=== PATIENT | male | born 1950 | race Caucasian/White ===

== ENCOUNTER 2016-09-17 03:07 | Observation (INO) | payer MEDICARE, OTHER ==
[~2016-09-17] VITALS: Ht 185.4 cm; Wt 69.9 kg
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
[2016-09-17 03:55] LABS: BASO # 0.1 x10^3/uL (0.0-0.2); BASO % 1 % (0-3); EOS # 0.5 x10^3/uL (0.0-0.7); EOS % 7 % (0-3); HEMOGLOBIN 12.2 g/dL (13.0-17.5); LYMPH # 4.2 x10^3/uL (1.0-4.8); LYMPH % 56 % (24-48); MEAN CORPUSCULAR HEMOGLOBIN 29 pg (25-35); MEAN CORPUSCULAR HGB CONC 32 g/dL (31-37); MEAN CORPUSCULAR VOLUME 91 fL (79-100); MONO # 1.2 x10^3/uL (0.0-1.1); MONO % 16 % (0-9); NEUT # 1.5 x10^3uL (1.8-7.7); NEUT % 20 % (31-73); PLATELET COUNT 212 x10^3/uL (140-400); RED BLOOD COUNT 4.18 x10^6/uL (4.30-5.70); RED CELL DISTRIBUTION WIDTH 14.7 % (11.5-14.5); WHITE BLOOD COUNT 7.5 x10^3/uL (4.0-11.0)
[2016-09-17] MEDS ORDERED: LIDO:MAALOX 1:1 20 ML SINGLE DOSE PO ONE (04:00)
[2016-09-17] MEDS ORDERED: IOHEXOL 300 MG/ML 75 ML VIAL. IV ONE (04:00)
[2016-09-17] MEDS ORDERED: ONDANSETRON PF 4 MG/2 ML VIAL. IV ONE (04:00)
[2016-09-17] MEDS ORDERED: FAMOTIDINE 20 MG/2 ML VIAL IVP ONE (04:00)
[2016-09-17] MEDS ORDERED: CONTRAST GIVEN MC PRN (04:00)
[2016-09-17] MEDS ORDERED: MVI, ADULT NO.4 WITH VIT K 10 ML, FOLIC ACID SYRINGE for ER 1 MG, THIAMINE 100 MG in IV... IV SCH ×4 (04:00)
--- NOTE | 2016-09-17 04:05 | ACF ---
Admission Criteria Forms ABDOMINAL PAIN Clinical Indications for Admission to Inpatient Care (Place 'X' for any and all applicable criteria): Admission is indicated for ANY ONE of the following(1)(2)(3)(4)(5): [ ]I. Inpatient admission required rather than observation care (Also use Abdominal Pain: Observation Care, as appropriate) because of ANY ONE of the following: [ ]a) Severe pain requiring acute inpatient management [ ]b) Identification of etiology/finding that requires inpatient care (eg, aortic dissection, free air) [ ]c) Absent bowel sounds with complete ileus(6) [ ]d) Suspected toxic megacolon [ ]e) Severe electrolyte abnormalities requiring inpatient care [ ]f) High fever or infection requiring inpatient admission as indicated by ANY ONE of following(7)(8): [ ] i) Appropriate outpatient or observational care antimicrobial treatment unavailable, not effective, or not feasible [ ] ii) Documented bacteremia [ ] iii) Temperature > 104.9 degrees F (oral) [ ] iv) T >103.1 F (oral) or < 96.8 F(rectal) that does not respond to all emergency treatment measures [ ]g) Signs of intestinal obstruction [B] [ ]h) Hemodynamic instability [ ]i) IV fluid to replace significant ongoing losses (greater than 3 L/m2 per day) (12)(13) [ ]j) Percutaneous or open drainage (eg, abscess, biliary tract ) procedures [ ]k) Parenteral nutrition regimen that must be implemented on inpatient basis [ ]l) Other condition,treatment or monitoring requiring inpatient admission. [ ]II. Peritoneal signs present [ ]III. Surgery needed that cannot be performed on an ambulatory basis. [ ]IV. Evaluation requires patient to not eat or drink for extended period ( eg, more than 24 hours). [ ]V. Contraindications and/or Inappropriate clinical situations for Observational Care in patients with abdominal pain, when ANY ONE of the following is required: [ ]a) Thorough evaluation is required to prevent catastrophic events due to delays in diagnosing (e.g.Mesenteric ischemia) 1,3 [ ]b) Patient with severe pathology or with chronic symptoms unlikely to improve in the ED stay (3) [ ]. General contraindications and/or Inappropriate clinical situations for Observational Care in patients with abdominal pain, when ANY ONE of the following is required: [ ]a) Prediction of prolongation of LOS based on ANY ONE of the following may be considered as a contraindication for observational care 2, 3, 4, 5, 6, 7, 8, 9, 10, 11 [ ]i) Age > 65 yrs. [ ]ii) Patient arriving by ambulance [ ]iii) Patient with high acuity [ ]iv) Patient requiring vital sign monitoring [ ]v) Patient on IV medication [ ]b) Systolic blood pressures 180mmHg 3,12 [ ]c) Patient with altered mental status including delirium and other alteration of consciousness, (3) [ ]d) Patient whose discharge disposition will be to a half-way home or rehabilitation home should not be managed in Emergency Department Observation Unit. CMS rule requires 3 days hospital stay before such placement.3,13 [ ]e) Patient with failure to thrive due to broad array of etiologies 3,16,17 [ ]f) Inability to ambulate 3,14 Extended stay beyond goal length of stay may be needed for(2)(3): [ ]a) Persistent abdominal pain with suspected intra-abdominal process [ ]b) Diagnosed condition requiring continued stay (e.g., pancreatitis, complicated diverticulitis) [ ]c) Surgery (e.g., colectomy) The original [facility] content created by [employer] has been revised. The portions of the content which have been revised are identified through the use of italic text or in bold, and [email or web address] has neither reviewed nor approved the modified material.All other unmodified content is copyright [facility]. Please see references footnoted in the original [facility] edition 2015 JAMARCUS RAYA Sep 17, 2016 04:05 KWADWO MATTHEWS Sep 17, 2016 05:15
[2016-09-17 04:07] LABS: ALBUMIN 3.3 g/dL (3.4-5.0); ALBUMIN/GLOBULIN RATIO 0.8 (1.0-1.7); CALCIUM 8.3 mg/dL (8.5-10.1); CREATININE 1.7 mg/dL (0.7-1.3); GFR 40.7; POTASSIUM 3.9 mmol/L (3.5-5.1); TOTAL BILIRUBIN 0.3 mg/dL (0.2-1.0); TOTAL PROTEIN 7.3 g/dL (6.4-8.2)
[2016-09-17] MEDS ORDERED: IV NORMAL SALINE 1,000ML 1,000 ML ONE ×2 (04:09→05:01)
[2016-09-17] MEDS ORDERED: THIAMINE 200 MG/2 ML VIAL. IV ONE (04:10)
[2016-09-17] MEDS ORDERED: FOLIC ACID 5 MG/ML SYRINGE for ER IV ONE (04:10)
[2016-09-17] MEDS ORDERED: MVI, ADULT NO.4 WITH VIT K 10 ML VIAL IV ONE (04:10)
[2016-09-17] MEDS ORDERED: IV NORMAL SALINE 1,000ML 1,000 ML IV SCH (04:35)
--- NOTE | 2016-09-17 04:50 | RAD ---
CT scan of the abdomen and pelvis without contrast 09/17/2016 CLINICAL HISTORY: Abdominal pain, nausea and vomiting since earlier today. TECHNIQUE: Unenhanced, contiguous, 3 mm axial sections were obtained through the abdomen and pelvis. One or more of the following individualized dose reduction techniques were utilized for this study: 1. Automated exposure control. 2. Adjustment of the mA and/or kV according to patient size. 3. Use of iterative reconstruction technique. FINDINGS: Images through the lung bases demonstrate minimal dependent subsegmental atelectasis bilaterally. The liver, spleen, pancreas and adrenal glands are within normal limits. The patient is status post left nephrectomy. Low-attenuation lesions are seen involving the superior/midpole of the right kidney. These measure 7 mm and 1.3 cm in size. They are consistent most likely with cysts. Mild to moderate scattered atherosclerotic plaque formation is seen involving the abdominal aorta and its branches. The abdominal aorta tapers normally. The gallbladder is contracted. No free fluid or free air is seen within the abdomen. There is no evidence of bowel obstruction. Air and stool is seen throughout the colon. Images through the pelvis demonstrate the urinary bladder to be slightly contracted. The prostate gland is mildly enlarged likely related to BPH. Calcifications are seen within the pelvis consistent with phleboliths. No free fluid is seen. Very mild S-shaped curvature of the thoracolumbar spine is seen. Degenerative changes are seen involving the lower thoracic and throughout the lumbar spine and both hips. IMPRESSION: No acute abnormality is seen. Electronically signed by: Anish Riggins MD (09/17/2016 4:46 AM)
[2016-09-17] MEDS ORDERED: IV NORMAL SALINE 1,000ML 1,000 ML IV ONE (05:15)
--- NOTE | 2016-09-17 05:17 | ACF ---
Admission Criteria Forms MUSCULOSKELETAL DISEASE GRG Clinical Indications for Admission to Inpatient Care (Place 'X' for any and all applicable criteria): Hospital admission is needed for appropriate care of the patient because of 1 or more of the following: [ ]I. Fracture, dislocation, or other musculoskeletal injury requiring inpatient care(medical) as indicated by 1 or more of the following(4)(5)(6)(7) [ ]a) Vertebral fracture requiring observation for instability or neurologic compromise (8) [ ]b) Compartment syndrome (proven or cannot be ruled out during observation level of care) (9) [ ]c) Limb-threatening injury [ ]d) Major injury requiring inpatient stabilization such as traction initiation or external fixation before internal fixation or closure of complex or open fracture [ ]e) Major injury requiring inpatient treatment after emergency or observation level care (as appropriate) [ ]f) Severe pain requiring acute inpatient management [ ]g) Injury with suspicion of abuse or neglect (eg., child, dependent elderly) [ ]II. Newly diagnosed or suspected bone, joint, or orthopedic device infection (e.g., osteomyelitis, septic arthritis) needing 1 or more of the following(1)(2)(3) [ ]a) IV antibiotics that cannot be initiated in other than inpatient setting (e.g., patient too unstable or home infusion not available) [ ]b) Device removal or replacement [ ]c) Bone or soft tissue debridement [ ]d) Joint drainage (drain placement or repetitive aspirations) [ ]III. Severe rheumatologic disease (e.g., systemic lupus erythematosus, rheumatoid arthritis) with complications or comorbidities (Also use Optimal Recovery Care Criteria or General Recovery Criteria as appropriate on the basis of predominant condition), including 1 or more of the following( 10)(11)(12)(13) [ ]a) Severe infection (e.g., NUTRITION INSTRUCTOR infection, sepsis) (14) [ ]b) Respiratory complications, including 1 or more of the following : [ ]i) Pleural effusion with respiratory compromise [ ]ii) Pulmonary hypertension with congestive failure [ ]iii) Respiratory failure [ ]iv) Pulmonary hemorrhage (15) [ ]c) Hematologic disease, including 1 or more of the following: [ ]i) Coagulopathy with bleeding [ ]ii) Thrombosis with hypercoagulable state [ ]iii) Thrombotic thrombocytopenic purpura [ ]d) Cerebritis with seizures, psychosis, or other severe abnormalities [ ]e) Vertebral destruction with monitoring needed for cervical myelopathy& possible respiratory compromise [ ]f) Exacerbation that requires inpatient treatment (e.g., intravenous immunosuppression) (16) [ ]g) Acute renal failure [ ]h) Cerebritis with seizures, psychosis, Altered mental status, or other neurologic abnormalities [ ]i) Pericardial effusion with tamponade [ ]j) Vertebral destruction, with monitoring needed for cervical myelopathy and possible respiratory compromise [ ]IV. Severe vasculitis with complications or comorbidities (Also use Optimal Recovery Care Criteria General Recovery Criteria as appropriate on the basis of predominant condition), including 1 or more of the following(11)(12)(17)(18)(19)(20) [ ]a) Exacerbation that requires inpatient treatment (e.g., intravenous immunosuppression) (19)(21) [ ]b) Pulmonary hemorrhage (15) [ ]c) NUTRITION INSTRUCTOR vasculitis with seizures, psychosis, Altered mental status that is severe or persistent, or other severe abnormalities (22) [ ]d) Cerebral infarction [ ]e) Gastrointestinal ischemia [ ]f) Gangrene or threatened amputation [ ]g) Renal failure (16) [ ]h) Other significant complications of vasculitis ( eg., tissue or organ ischemia, organ dysfunction ) [ ]V. Severe myopathy as indicated by 1 or more of the following (28)(29) [ ]a) New onset of airway compromise or inability to swallow [ ]b) Respiratory deterioration with observation needed for impending respiratory failure [ ]c) Exacerbation that requires inpatient treatment (e.g., intravenous immunosuppression) [ ]. Severe crystal gout (arthropathy) indicated by 1 or more of the following (23)(24) [ ]a) Severe pain requiring acute inpatient management [ ]b) Exacerbation that requires inpatient treatment (e.g., intravenous treatment) [X]VII.Rhabdomyolysis and 1 or more of the following (25)(26)(27) [X]a) Acute renal failure [ ]b) Need for intravenous hydration after emergency or observation level care (as appropriate) [ ]c) Inability to maintain oral hydration [ ]d) Change in mental status [ ]e) Electrolyte abnormality that remains after emergency or observation level care (as appropriate) [ ]VIII Post amputation complication, as indicated by ANY ONE of the following [ ]a) Infection [ ]b) Dehiscence [ ]c) Myodesis failure [ ]IX. Severe pain requiring acute inpatient management due to musculoskeletal condition [ ]X. Musculoskeletal Disease and ALL of the following: [ ]a) Symptom or finding for which emergency and observation care have failed or are not considered appropriate (Use General Criteria: Observation Care as appropriate) [ ]b) Presence of ANY ONE of the following [ ]i) A General Admission Criteria [ ]ii) A Pediatric General Admission Criteria The original [facility] [employer] content created by [facility] [employer] has been revised. The portions of the content which have been revised are identified through the use of italic text or in bold, and [facility] has neither reviewed nor approved the modified material. All other unmodified content is copyright [facility]. Please see references footnoted in the original [facility] edition 2016 Admission Criteria Met?: Yes KWADWO MATTHEWS Sep 17, 2016 05:17
[2016-09-17] MEDS ORDERED: ONDANSETRON PF 4 MG/2 ML VIAL. IV PRN (05:45)
[2016-09-17] MEDS ORDERED: ACETAMINOPHEN 325 MG TABLET PO PRN (05:45)
[2016-09-17 06:04] VITALS: BP 121/87
[2016-09-17] MEDS: IV NORMAL SALINE 1,000ML 1,000 ML IV SCH ×2 (06:13→11:24)
[2016-09-17 06:18] LABS: AMPHETAMINE/METHAMPHETAMINE NEG (NEG); BARBITURATES NEG (NEG); BENZODIAZEPINES NEG (NEG); CANNABINOIDS POS (NEG); COCAINE POS (NEG); METHADONE NEG (NEG); OPIATES NEG (NEG); PHENCYCLIDINE NEG (NEG)
[2016-09-17 06:21] LABS: BILIRUBIN,URINE NEG (NEG); CLARITY,URINE CLEAR; COLOR,URINE YELLOW; GLUCOSE,URINE NEG (NEG)
[2016-09-17 06:22] LABS: BACTERIA,URINE 0 /HPF (0-FEW); HYALINE CASTS, URINE MOD /HPF; NITRITE,URINE NEG (NEG); RBC,URINE 0 /HPF (0-2); SQUAMOUS EPITHELIAL CELL,UR FEW /LPF; UROBILINOGEN,URINE 0.2 mg/dL (0.2 mg/dL)
--- NOTE | 2016-09-17 06:26 | EKG ---
[address] [address] Test Date: 2016-09-17 Test Time: 04:12:57 Pat Name: AMANDA RETANA Department: Room: Gender: M Floating Operator: ARIS : 1953-10-29 Requested By: OLIVIA MCGUIRE Order Number: [id number] Reading MD: Measurements Intervals [place] Rate: 68 P: 61 SD: 114 QRS: 11 QRSD: 118 T: 128 QT: 408 QTc: 439 Interpretive Statements SINUS RHYTHM R-S TRANSITION ZONE IN V LEADS DISPLACED TO THE RIGHT QRS(T) CONTOUR ABNORMALITY CONSIDER ANTEROLATERAL MYOCARDIAL DAMAGE CONSISTENT WITH INFERIOR INFARCT PROBABLY OLD RI6.01 Unconfirmed report No previous ECG available for comparison
[2016-09-17] MEDS ORDERED: ACET500T68 PO (07:08)
[2016-09-17] MEDS ORDERED: EMTR1TAB9 PO (07:08)
[2016-09-17] MEDS ORDERED: DIPH50CA PO (07:08)
[2016-09-17] MEDS ORDERED: IBUP800T19 PO (07:08)
[2016-09-17] MEDS ORDERED: HYDR12.58 PO (07:08)
[2016-09-17] MEDS ORDERED: DOCU100C28 PO (07:08)
[2016-09-17] MEDS ORDERED: AMLO10TA2 PO (07:08)
[2016-09-17] MEDS ORDERED: LEDI1TAB PO (07:11)
[2016-09-17] MEDS ORDERED: M-SA237L TP (07:11)
[2016-09-17] MEDS ORDERED: LORA10TA3 PO (07:11)
[2016-09-17] MEDS ORDERED: METH-37 PO (07:12)
[2016-09-17] MEDS ORDERED: MULT-208 PO (07:13)
[2016-09-17] MEDS ORDERED: SERT50TA PO (07:13)
[2016-09-17] MEDS: IPRATRPIUM/ALBUTEROL 0.5/2.5MG 3 ML NEBU. NEB SCH ×2 (09:34→15:29)
[2016-09-17 10:23] VITALS: BP 112/66
[2016-09-17] MEDS ORDERED: IBUPROFEN 800 MG TABLET. PO PRN (13:30)
[2016-09-17] MEDS ORDERED: METHOCARBAMOL 500 MG TABLET PO PRN (13:30)
[2016-09-17] MEDS ORDERED: NON FORMULARY ITEM (Ledipasvir/Sofosbuvir (Harvoni 90-400 mg Tablet) 1 TAB) PO PRN (13:30)
[2016-09-17] MEDS ORDERED: DOCUSATE SODIUM 100 MG CAPSULE PO PRN (13:30)
[2016-09-17] MEDS ORDERED: SERTRALINE 50 MG TABLET. PO SCH (14:00)
[2016-09-17] MEDS ORDERED: amLODIPine BESYLATE 10 MG TABLET PO SCH (14:00)
[2016-09-17 15:56] VITALS: BP 151/99
--- NOTE | 2016-09-17 15:59 | PDOC3 ---
Discharge Summary Visit Information Date of Admission: Sep 17, 2016 Date of Discharge: Sep 17, 2016 Admitting Diagnosis: Mild rhabdomyolysis,CKI, POLYSUBSTANCE ABUSE, HIV Hepati Admitting Diagnosis Comments Mild rhabdomyolysis Polysubstance abuse CKI COACIANE ABUSE ALCOHOLISM HEPATITIS C HIV Tobaccoism Final Diagnosis Dehydration and mild rhabdomyolysis resolving Hepatitis c HIV COCAINE ABUSE ALCOHOLISM TOBACCOISM Problems: Brief Hospital Course Allergies Allergies Coded Allergies Type Severity Reaction Last Updated Verified No Known Drug Allergies 09/17/16 No Vital Signs Vital Signs Date Time Temp Pulse Resp B/P (MAP) Pulse Ox O2 Delivery O2 Flow Rate FiO2 09/17/16 15:30 98 Room Air 09/17/16 14:21 81 09/17/16 10:23 14 112/66 (81) 09/17/16 06:04 97.3 Lab Results Laboratory Tests Test 09/17/16 03:20 09/17/16 05:49 09/17/16 10:20 White Blood Count 7.5 x10^3/uL (4.0-11.0) Red Blood Count 4.18 x10^6/uL (4.30-5.70) Hemoglobin 12.2 g/dL (13.0-17.5) Hematocrit 38.0 % (39.0-53.0) Mean Corpuscular Volume 91 fL (79-100) Mean Corpuscular Hemoglobin 29 pg (25-35) Mean Corpuscular Hemoglobin Concent 32 g/dL (31-37) Red Cell Distribution Width 14.7 % (11.5-14.5) Platelet Count 212 x10^3/uL (140-400) Neutrophils (%) (Auto) 20 % (31-73) Lymphocytes (%) (Auto) 56 % (24-48) Monocytes (%) (Auto) 16 % (0-9) Eosinophils (%) (Auto) 7 % (0-3) Basophils (%) (Auto) 1 % (0-3) Neutrophils # (Auto) 1.5 x10^3uL (1.8-7.7) Lymphocytes # (Auto) 4.2 x10^3/uL (1.0-4.8) Monocytes # (Auto) 1.2 x10^3/uL (0.0-1.1) Eosinophils # (Auto) 0.5 x10^3/uL (0.0-0.7) Basophils # (Auto) 0.1 x10^3/uL (0.0-0.2) Sodium Level 140 mmol/L (136-145) Potassium Level 3.9 mmol/L (3.5-5.1) Chloride Level 104 mmol/L (98-107) Carbon Dioxide Level 26 mmol/L (21-32) Anion Gap 10 (6-14) Blood Urea Nitrogen 17 mg/dL (8-26) Creatinine 1.7 mg/dL (0.7-1.3) Estimated GFR (Cockcroft-Gault) 40.7 BUN/Creatinine Ratio 10 (6-20) Glucose Level 174 mg/dL (70-99) Calcium Level 8.3 mg/dL (8.5-10.1) Total Bilirubin 0.3 mg/dL (0.2-1.0) Aspartate Amino Transf (AST/SGOT) 48 U/L (15-37) Alanine Aminotransferase (ALT/SGPT) 39 U/L (16-63) Alkaline Phosphatase 82 U/L (46-116) Creatine Kinase 821 U/L (39-308) 614 U/L (39-308) Troponin I Quantitative < 0.017 ng/mL (0-0.055) < 0.017 ng/mL (0-0.055) Total Protein 7.3 g/dL (6.4-8.2) Albumin 3.3 g/dL (3.4-5.0) Albumin/Globulin Ratio 0.8 (1.0-1.7) Lipase 141 U/L (73-393) Ethyl Alcohol Level 16 mg/dL (0-10) Urine Collection Type Unknown Urine Color Yellow Urine Clarity Clear Urine pH 6.0 Urine Specific [place] <=1.005 Urine Protein Neg (NEG-TRACE) Urine Glucose (UA) Neg mg/dL (NEG) Urine Ketones (Stick) Neg mg/dL (NEG) Urine Blood Neg (NEG) Urine Nitrite Neg (NEG) Urine Bilirubin Neg (NEG) Urine Urobilinogen Dipstick 0.2 mg/dL (0.2 mg/dL) Urine Leukocyte Esterase Neg (NEG) Urine RBC 0 /HPF (0-2) Urine WBC 1-4 /HPF (0-4) Urine Squamous Epithelial Cells Few /LPF Urine Bacteria 0 /HPF (0-FEW) Urine Hyaline Casts Mod /HPF Urine Mucus Slight /LPF Urine Opiates Screen Neg (NEG) Urine Methadone Screen Neg (NEG) Urine Barbiturates Neg (NEG) Urine Phencyclidine Screen Neg (NEG) Urine Amphetamine/Methamphetamine Neg (NEG) Urine Benzodiazepines Screen Neg (NEG) Urine Cocaine Screen Pos (NEG) Urine Cannabinoids Screen Pos (NEG) Urine Ethyl Alcohol Neg (NEG) Brief Hospital Course Mr. Cullen is a 65 old [sex] who presented with [ ] Discharge Information Condition at Discharge: Improved, Stable Disposition/Orders: D/C to Home, D/C to a [facility] Medications Current Medications Multi-Ingredient Mouthwash/Gargle (Gi Cocktail) 20 ml 1X ONCE PO ; Start at 04:00; Stop 09/17/16 at 04:01; Status DC Ondansetron HCl (Zofran) 4 mg 1X ONCE IV Last administered on 09/17/16 04:00; Start 09/17/16 at 04:00; Stop 09/17/16 at 04:01; Status DC Famotidine (Pepcid) 20 mg 1X ONCE IVP Last administered on 09/17/16 04:00; Start 09/17/16 at 04:00; Stop 09/17/16 at 04:01; Status DC Multivitamins/ Minerals 10 ml/ Folic Acid 1 mg/ Thiamine HCl 100 mg/Sodium Chloride 1,011.2 ml @ 1,000 mls/ hr Q1H IV Last administered on 09/17/16 04:00 ; Start 09/17/16 at 04:00; Stop 09/17/16 at 04:30; Status DC Iohexol (Omnipaque 300 Mg/ml) 75 ml 1X ONCE IV ; Start 09/17/16 at 04:00; Stop 09/17/16 at 04:01; Status DC Info (Do NOT chart on this entry -- for MONITORING) 1 each PRN DAILY PRN MC SEE COMMENTS; Start 09/17/16 at 04:00; Stop 09/19/16 at 03:59 Sodium Chloride 1,000 ml @ As Directed STK-MED ONCE .ROUTE ; Start 09/17/16 at 04:09; Stop 09/17/16 at 04:10; Status DC Thiamine HCl 200 mg STK-MED ONCE IV ; Start 09/17/16 at 04:10; Stop 09/17/16 at 04 :11; Status DC Multivitamins/ Minerals (Infuvite Adult) 10 ml STK-MED ONCE IV ; Start 09/17/16 at 04:10; Stop 09/17/16 at 04:11; Status DC Folic Acid 5 mg STK-MED ONCE IV ; Start 09/17/16 at 04:10; Stop 09/17/16 at 04:11 ; Status DC Sodium Chloride 1,000 ml @ 1,000 mls/hr Q1H IV ; Start 09/17/16 at 04:35; Stop 09/17/16 at 05:34; Status Cancel Sodium Chloride 1,000 ml @ 1,000 mls/hr Q1H ONCE IV Last administered on 05:12; Start 09/17/16 at 05:15; Stop 09/17/16 at 06:15; Status DC Sodium Chloride 1,000 ml @ As Directed STK-MED ONCE .ROUTE ; Start 09/17/16 at 05:01; Stop 09/17/16 at 05:10; Status DC Ondansetron HCl (Zofran) 4 mg PRN Q4HRS PRN IV NAUSEA/VOMITING; Start 09/17/16 at 05:45; Stop 09/18/16 at 05:44 Sodium Chloride 1,000 ml @ 200 mls/hr Q5H IV Last administered on 09/17/16 11: 24; Start 09/17/16 at 06:30; Stop 09/18/16 at 06:29 Acetaminophen (Tylenol) 650 mg PRN Q4HRS PRN PO FEVER; Start 09/17/16 at 05:45; Stop 09/18/16 at 05:44 Albuterol/ Ipratropium (Duoneb) 3 ml RTQID NEB Last administered on 09/17/16 15 :29; Start 09/17/16 at 08:00; Stop 09/18/16 at 07:59 Amlodipine Besylate (Norvasc) 10 mg DAILY PO ; Start 09/18/16 at 09:00; Stop 09/18 at 09:00; Status DC Docusate Sodium (Colace) 200 mg PRN DAILY PRN PO CONSTIPATION; Start 09/17/16 at 13:30 Ibuprofen (Motrin) 800 mg PRN TID PRN PO INFLAMMATION Last administered on 14:21; Start 09/17/16 at 13:30 Methocarbamol (Robaxin) 500 mg PRN BID PRN PO muscle spasm; Start 09/17/16 at 13 :30 Sertraline HCl (Zoloft) 50 mg DAILY PO ; Start 09/18/16 at 09:00; Stop 09/18/16 at 09:00; Status DC Non-Formulary Medication 1 tab DAILY PO ; Start 09/18/16 at 09:00; Status UNV Hydrochlorothiazide (Microzide) 12.5 mg DAILY PO ; Start 09/18/16 at 09:00 Non-Formulary Medication 1 tab DAILY PRN PO Hep C; Start 09/17/16 at 13:30; Status UNV Multivitamins/ Calcium (Thera-M Plus) 1 tab DAILY PO ; Start 09/18/16 at 09:00 Amlodipine Besylate (Norvasc) 10 mg DAILY PO Last administered on 09/17/16 14: 21; Start 09/17/16 at 14:00 Sertraline HCl (Zoloft) 50 mg DAILY PO Last administered on 09/17/16 14:21; Start 09/17/16 at 14:00 Active Scripts Active Reported Zoloft (Sertraline Hcl) 50 Mg Tablet 25 Mg PO DAILY Multi-Day Vitamins (Multivitamin) 1 Each Tablet 1 Tab PO DAILY Robaxin (Methocarbamol) 500 Mg Tablet 500 Mg PO PRN BID PRN [place] Aloe Analgesic Liniment (M-Salicy/Aloe Vera/Men/Euc Oil) 237 Ml Liniment 1 [place]aira TP PRN Q4HRS PRN Loratadine 10 Mg Tablet 10 Mg PO PRN DAILY PRN Harvoni 90-400 mg Tablet (Ledipasvir/Sofosbuvir) 1 Each Tablet 1 Tab PO DAILY PRN Ibuprofen 800 Mg Tablet 800 Mg PO PRN TID PRN Hydrochlorothiazide Tablet (Hydrochlorothiazide) 12.5 Mg Tablet 12.5 Mg PO DAILY Docusate Sodium 100 Mg Capsule 200 Mg PO PRN DAILY PRN Diphenhydramine Hcl 50 Mg Capsule 50 Mg PO PRN Q8HRS PRN Complera Tablet (Emtricitab/Rilpivirine/Tenofov) 1 Each Tablet 1 Tab PO DAILY Amlodipine Besylate 10 Mg Tablet 10 Mg PO DAILY Acetaminophen 500 Mg Tablet 500 Mg PO PRN Q8HRS PRN PAULETTE LOVING MD Sep 17, 2016 15:59
[2016-09-18] MEDS ORDERED: MULTIVITAMIN with MINERAL TABLET. PO SCH (09:00)
[2016-09-18] MEDS ORDERED: hydroCHLOROthiazide 12.5 MG CAPSULE PO SCH (09:00)
[2016-09-18] MEDS ORDERED: EMTRICITAB PO SCH (09:00)
[2016-09-18] MEDS ORDERED: amLODIPine BESYLATE 10 MG TABLET PO SCH (09:00)
[2016-09-18] MEDS ORDERED: TENOFOV PO SCH (09:00)
[2016-09-18] MEDS ORDERED: SERTRALINE 50 MG TABLET. PO SCH (09:00)
[2016-09-18] MEDS ORDERED: RILPIVIRINE PO SCH (09:00)
== END 2016-09-17 16:44 | disposition home or self-care (01) ==
LOC: EDBD 03:07 → ER 03:07 → ICU 05:11
PROVIDERS: ADMIT Internal Medicine; ATTEND Internal Medicine
DX: M62.82 Rhabdomyolysis (principal); E86.0 Dehydration; N17.9 Acute kidney failure, unspecified; F10.20 Alcohol dependence, uncomplicated; B19.20 Unspecified viral hepatitis C without hepatic coma; B20 Human immunodeficiency virus [HIV] disease; F14.10 Cocaine abuse, uncomplicated; F17.210 Nicotine dependence, cigarettes, uncomplicated; F43.10 Post-traumatic stress disorder, unspecified; I10 Essential (primary) hypertension; F39 Unspecified mood [affective] disorder; K21.9 Gastro-esophageal reflux disease without esophagitis; Z79.899 Other long term (current) drug therapy
CPT/HCPCS: 36415; 74176; 80053; 81001; 82550; 83690; 84484; 85027; 87641; 93005; 94640; 96361; 96365; 96375; 99285; 99406; G0378; G0480; G0481; J2405; J7620; S0028; G0379; J7030

== ENCOUNTER → 2017-11-20 | Outpatient (CLI) | payer OTHER ==
[~2017-11-20] MED LIST: ACET500T68 PO; AMLO10TA6 PO; DIPH50CA PO; DOCU100C28 PO; EMTR1TAB9 PO; HYDR12.58 PO; IBUP800T19 PO; LEDI1TAB PO; LORA10TA3 PO; M-SA237L TP; METH-37 PO; MULT-208 PO; SERT50TA PO
== END | disposition home or self-care (01) ==
LOC: SURG 12:24
PROVIDERS: ATTEND Anesthesiology Pain Medicine
DX: I10 Essential (primary) hypertension (principal); K21.9 Gastro-esophageal reflux disease without esophagitis; Z87.891 Personal history of nicotine dependence
CPT/HCPCS: 99214